=== PATIENT | male | born 1935 | race Caucasian/White ===

== ENCOUNTER 2017-08-17 04:19 | Emergency (ER) | payer OTHER ==
[~2017-08-17] VITALS: Ht 170.2 cm; Wt 57.9 kg
[2017-08-17] MEDS ORDERED: DEXTROSE 50%-WATER 25 GM/50 ML SYRINGE IVP ONE ×2 (04:21→05:30)
[2017-08-17] MEDS ORDERED: SODIUM BICARBONATE [ADULT] 8.4% 50 MEQ/50 ML SYRINGE IVP ONE ×2 (04:21→04:45)
[2017-08-17] MEDS ORDERED: EPINEPHrine 1:10,000 [1 MG/10 ML] SYRINGE IVP ONE ×3 (04:21→04:45)
[2017-08-17] MEDS ORDERED: NOREPINEPHRINE 4 MG/D5%-WATER 250 ML IV ONE (04:41)
[2017-08-17 04:42] LABS: HEMATOCRIT 39.7 % (41-53); HEMOGLOBIN 13.2 g/dL (13.5-17.5); MEAN CORPUSCULAR HEMOGLOBIN 29.1 pg (26.0-34.0); MEAN CORPUSCULAR HGB CONC 33.2 G/dL (31.0-37.0); MEAN CORPUSCULAR VOLUME 88 fL (80-100); PLATELET COUNT (AUTO) 173 K/uL (150-450); RED BLOOD CELL COUNT(AUTO) 4.53 MIL/uL (4.50-5.90); RED CELL DISTRIBUTION WIDTH 15.8 % (11.5-14.5); WHITE BLOOD COUNT (AUTO) 16.4 K/uL (4.5-11.0)
[2017-08-17] MEDS ORDERED: ASPI81 PO (04:49)
[2017-08-17] MEDS ORDERED: CALC-1153 PO (04:49)
[2017-08-17] MEDS ORDERED: PRED20 PO (04:49)
[2017-08-17] MEDS ORDERED: FINA5TAB41 PO (04:49)
[2017-08-17] MEDS ORDERED: SERT50TA12 PO (04:49)
[2017-08-17] MEDS ORDERED: FLUT100B IH (04:49)
[2017-08-17] MEDS ORDERED: ALEN70TA48 PO (04:49)
[2017-08-17] MEDS ORDERED: PRED5 PO (04:49)
[2017-08-17 04:54] LABS: INR 1.4 (0.9-1.1); PROTHROMBIN TIME 14.8 SEC (9.4-11.6)
[2017-08-17 05:18] LABS: ABG A-A DIFF O2 551.5 mmHg (10-20.0); ABG BASE EXCESS -19.1 mmol/L (-2.0-3.0); ABG OXYHEMOGLOBIN 85.4 % (94.0-100.0); TEMPERATURE, FAHRENHEIT, BG 98.5 FAHREN (96.0-98.6)
[2017-08-17 05:18] LABS: ALANINE AMINOTRANSFERASE 343 U/L (12-78); ALBUMIN 1.8 g/dL (3.4-5.0); ANION GAP 20 mmol/L (8-16); BILIRUBIN,TOTAL 1.1 mg/dL (0.1-1.0); CALCIUM, TOTAL 8.8 mg/dL (8.8-10.5); CARBON DIOXIDE 17 mmol/L (22-29); CHLORIDE 100 mmol/L (98-107); CREATINE KINASE, TOTAL 206 U/L (39-308); CREATININE 1.35 mg/dL (0.60-1.30); GLOMERULAR FILTR. RATE CALC 46 mL/min (>60); POTASSIUM 5.4 mmol/L (3.5-5.1); SODIUM SERUM 137 mmol/L (136-145); TOTAL PROTEIN, SERUM 5.1 g/dL (6.4-8.2); UREA NITROGEN, BLOOD 28 mg/dL (7-18)
[2017-08-17] MEDS ORDERED: SODIUM CHLORIDE 0.9% 500 ML IV ONE ×2 (05:26→05:45)
[2017-08-17 05:28] LABS: ASPARTATE AMINOTRANSFERASE 1864 U/L (15-37); CREATINE KINASE MB < 0.5 ng/mL (0-5)
[2017-08-17 05:29] LABS: ABG HCO3 9.8 mmol/L (22.0-26.0); ABG PCO2 77 mmHg (35-45); ABG PH 6.881 (7.35-7.450); ALLEN TEST, BLOOD GAS POSITIVE
[2017-08-17 05:31] LABS: B-TYPE NATRIURETIC PEPTIDE 434 pg/mL (0-100)
[2017-08-17 05:50] LABS: GLUCOSE COMMENT 1 Doctor Notified; GLUCOSE COMMENT 3 Repeated; GLUCOSE,POINT OF CARE 367 MG/DL (70-110)
[2017-08-17 06:24] LABS: TOTAL CELLS COUNTED 100
[2017-08-17 06:25] LABS: BAND NEUTROPHILS % (MANUAL) 11 % (1-5); LYMPHOCYTES % (MANUAL) 31 % (22-44); METAMYELOCYTES % 3 % (0-0); MYELOCYTES % 3 % (0-0)
[2017-08-17] MEDS ORDERED: AZTREONAM 1 GM in DEXTROSE 5%-WATER 50 ML IV ONE (06:45)
[2017-08-17] MEDS ORDERED: SODIUM CHLORIDE 0.9% 1,000 ML IV ONE (06:45)
[2017-08-17] MEDS ORDERED: VANCOMYCIN HCL 1 GM/D5% WATER 200 ML IV ONE (06:45)
[2017-08-17 07:08] LABS: APPEARANCE,URINE CLOUDY (CLEAR); GLUCOSE, URINE (UA) NEGATIVE (NEGATIVE); KETONES,URINE NEGATIVE (NEGATIVE); LEUKOCYTE ESTERASE ,URINE NEGATIVE (NEGATIVE); OCCULT BLOOD,URINE TRACE (NEGATIVE); PROTEIN,URINE SEE CONFIRM (NEGATIVE)
[2017-08-17 07:23] LABS: ADD UA MICROSCOPIC YES
[2017-08-17 07:25] LABS: SULFOSALICYLIC ACID,URINE 3+ (Negative)
[2017-08-17 07:26] LABS: RBC,URINE 0-2 /HPF (0-2)
[2017-08-17 07:27] LABS: WBC,URINE 0-2 /HPF (0-5)
[2017-08-17 07:28] LABS: SQUAMOUS EPITHELIAL CELL,UR Rare /LPF (None Seen); TRANSITIONAL EPI CELLS,URINE Few /LPF (None Seen)
[2017-08-17 08:17] VITALS: BP 0/0
== END 2017-08-17 10:45 | disposition expired ==
LOC: EDBD 04:20 → EMS 04:20
DX: I46.9 Cardiac arrest, cause unspecified (principal); E86.0 Dehydration; F17.200 Nicotine dependence, unspecified, uncomplicated; Z88.0 Allergy status to penicillin; Z88.1 Allergy status to other antibiotic agents; Z88.8 Allergy status to other drugs, medicaments and biological substances; Z79.82 Long term (current) use of aspirin
CPT/HCPCS: 31500; 36415; 51702; 71010; 80053; 80307; 81001; 82550; 82553; 82805; 82962; 83880; 84484; 85025; 85610; 85730; 87040; 87077; 87186; 92950; 93005; 96360; 96365; 96375; 99291; J0171; J3370; J3490 ×3; J7040; J7060; 94002